=== PATIENT | male | born 1990 | race Caucasian/White ===

== ENCOUNTER 2024-09-25 15:49 | Emergency (ER) | payer OTHER ==
[~2024-09-25] VITALS: Ht 180.3 cm; Wt 81.7 kg
[~2024-09-25 15:49] MED LIST: CEPH500 PO; CRUTCH2 USE; HYDACE5 PO; SULTRIDS PO
[2024-09-25] MEDS ORDERED: Diphth,Pertuss(Acell),Tet Vac 0.5 ML VIAL IM ONE (16:25)
[2024-09-25 16:35] LABS: BASOPHILS ABSOLUTE AUTO 0.11 K/mm3 (0.00-0.23); BASOPHILS PERCENT AUTO 1 % (0-2); EOSINOPHILS ABSOLUTE AUTO 0.19 K/mm3 (0.00-0.68); EOSINOPHILS PERCENT AUTO 1 % (0-6); Hematocrit 42.3 % (37.0-53.0); Hemoglobin 14.8 g/dL (13.5-17.5); IMMATURE GRAN PERCENT AUTO 1 % (0-1); LYMPHOCYTES ABSOLUTE AUTO 1.39 K/mm3 (0.84-5.20); LYMPHOCYTES PERCENT AUTO 10 % (21-46); MONOCYTES ABSOLUTE AUTO 0.78 K/mm3 (0.16-1.47); MONOCYTES PERCENT AUTO 6 % (4-13); Mean Corpuscular Volume 91 fL (80-100); Mean Platelet Volume 9.7 fL (9.1-12.4); NEUTROPHILS ABSOLUTE AUTO 11.59 K/mm3 (1.96-9.15); NEUTROPHILS PERCENT AUTO 82 % (41-73); Platelet Count 300 K/mm3 (150-400); RDW Coefficient Variation 11.9 % (11.7-14.2); RDW Standard Deviation 39.6 fL (35.1-46.3); Red Blood Cell Count 4.63 M/mm3 (4.30-5.90); White Blood Cell Count 14.16 K/mm3 (4.00-11.30)
[2024-09-25] MEDS ORDERED: HYDROmorphone HCl/Pf 1MG SYR IV ONE (16:35)
[2024-09-25 16:48] LABS: International Normalized Ratio 1.04; Prothrombin Time Results 11.1 Sec (9.7-11.5)
[2024-09-25 16:52] LABS: Ethanol (Alcohol), Blood, Med <3 mg/dL
[2024-09-25 16:53] LABS: Alanine Aminotransfer (ALT/SGP 59 U/L (12-78); Albumin, Blood 4.4 g/dL (3.4-5.0); Albumin/Globulin Ratio 1.3 (0.8-1.8); Alk Phos 57 U/L (50-136); Anion Gap 11 mmol/L (3-11); Aspartate Aminotrans (AST/SGOT 64 U/L (12-37); Bilirubin, Total 0.5 mg/dL (0.1-1.0); Blood Urea Nitrogen 20 mg/dL (8-24); Bun/Creatinine Ratio 18.3 (12.0-20.0); CO2, Blood 25 mmol/L (21-32); Calcium, Blood 9.4 mg/dL (8.5-10.1); Chloride, Blood 105 mmol/L (98-108); Creatinine, Blood 1.09 mg/dL (0.60-1.20); Globulin, Blood 3.3 g/dL (2.2-4.0); Glomerular Filtration Rate 92 (60-); Glucose, Blood 95 mg/dL (70-99); Potassium, Blood 3.7 mmol/L (3.5-5.5); Sodium, Blood 137 mmol/L (136-145); Total Protein, Blood 7.7 g/dL (6.4-8.2)
[2024-09-25] MEDS ORDERED: Ketorolac Tromethamine 30mg Vial IV ONE (17:25)
[2024-09-25 18:43] LABS: Source, Urine Clean Catch
[2024-09-25 18:47] LABS: Appearance, Urine Clear (Clear); Bilirubin, Urine Neg (Neg); Blood, Urine Neg (Neg); Color, Urine Yellow (P-Yellow); Glucose Qualitative, Urine Neg (Neg); Ketones, Urine 4+ (Neg); Leukocyte Esterase, Urine Neg (Neg); Nitrite, Urine Neg (Neg); Protein, Urine 1+ (Neg); Specific Gravity, Urine 1.015 (1.003-1.022); Urobilinogen, Urine NORM (Normal)
[2024-09-25 19:00] LABS: U Amphetamine Screen Not Detected; U Barbituate Screen Not Detected; U Benzodiazapine Screen Not Detected; U Cocaine Screen Not Detected; U Methadone Screen Not Detected; U Methamphetamine Screen Not Detected
[2024-09-25 19:01] LABS: U Buprenorphine Screen Not Detected; U Cannabinoids Screen Not Detected; U Opiates Screen DETECTED; U Oxycodone Screen Not Detected; U Phencyclidine Screen Not Detected
[2024-09-25] MEDS ORDERED: OXAYDO5 M1 PO (19:40)
== END 2024-09-25 19:54 | disposition home or self-care (01) ==
LOC: ER 15:49
PROVIDERS: Student in an Organized Health Care Education/Training Program
DX: S42.101A Fracture of unspecified part of scapula, right shoulder, initial encounter for closed fracture (principal); S00.81XA Abrasion of other part of head, initial encounter; Y93.55 Activity, bike riding; Z88.1 Allergy status to other antibiotic agents; Z88.0 Allergy status to penicillin; Z79.2 Long term (current) use of antibiotics; Z79.891 Long term (current) use of opiate analgesic; V86.56XA Driver of dirt bike or motor/cross bike injured in nontraffic accident, initial encounter
CPT/HCPCS: 70450; 71045; 71260; 72125; 73030; 73100; 74177; 80053; 80320; 83690; 85025; 85610; 96374-59; 96375; 99284-25; J1171; J1885; Q9967

== ENCOUNTER 2025-04-14 08:32 | Day surgery (SDC) | payer OTHER ==
[~2025-04-14] VITALS: Ht 180.3 cm; Wt 83.0 kg
[2025-04-14] VITALS (17 sets, daily range): BP systolic 87–163; BP diastolic 43–88
[~2025-04-14 08:32] MED LIST changes: +Bupivacaine 0.5% HCl 5 MG/ML 30MLVIAL ONE; +CeFAZolin Sodium 2,000 MG in NS 100 ML IV SCH; +FentaNYL Citrate 50 MCG/ML 2 ML Injection ONE; +IBUP800 PO; +Midazolam HCl 1MG / ML 2ML Vial ONE; +OXAYDO5 M1 PO; +Phenylephrine HCl 100 MCG/ML-NS 10MLSYR (1MG/10ML) ONE; +Rocuronium Bromide 10 MG/ML 5ML Injection IV ONE; +Tranexamic Acid 100 ML IV SCH; +ZYRTEC10 M2 PO
[2025-04-14] MEDS ORDERED: EPINEPhrine HCl 1 MG / ML 30ML Vial ONE (09:03)
[2025-04-14] MEDS ORDERED: Bupivacaine 0.5% W/EPI 1:200000 SDV 30 ML Vial ONE (09:04)
--- NOTE | 2025-04-14 09:08 | NUR ---
History, Chart, Medications and Allergies reviewed before start of procedure. Patient States Post-Procedure ride home has been arranged. PT FITTED IN SLING IN PRE OP.
--- NOTE | 2025-04-14 09:25 | NUR ---
TIME OUT AT 0911 [address] NAVARRO, ANESTHESIOLOGIST. THIS RN ASSISTED. PT TOLERATED PROCEDURE WELL. VSS. PT PREMEDICATED BY ANESTHESIOLOGIST, SEE RECORDS.
[2025-04-14] MEDS ORDERED: Dexamethasone Sod Phos 10 MG/ML 1ML VIAL ONE (09:39)
[2025-04-14] MEDS ORDERED: Ketorolac Tromethamine 30mg Vial ONE (09:39)
[2025-04-14] MEDS ORDERED: Ondansetron HCl 2 MG / ML 2ML Vial ONE (09:39)
[2025-04-14] MEDS ORDERED: FentaNYL Citrate 50 MCG/ML 2 ML Injection ONE ×2 (10:44→12:11)
[2025-04-14] MEDS ORDERED: Phenylephrine HCl 100 MCG/ML-NS 10MLSYR (1MG/10ML) ONE (11:02)
[2025-04-14] MEDS ORDERED: Sugammadex Sodium 200 MG/2ML SDV (100 MG/ML) ONE (12:07)
[2025-04-14] MEDS ORDERED: Prochlorperazine Edisylate 10 mg Vial IV PRN (12:25)
[2025-04-14] MEDS ORDERED: FentaNYL Citrate 50 MCG/ML 2 ML Injection IV PRN ×2 (12:25→12:30)
[2025-04-14] MEDS ORDERED: Ondansetron HCl 2 MG / ML 2ML Vial IV PRN (12:30)
[2025-04-14] MEDS ORDERED: HYDROmorphone HCl/Pf 1MG SYR IV PRN (12:30)
--- NOTE | 2025-04-14 15:18 | NUR ---
Discharge instructions reviewed with patient. Patient verbalizes understanding. Copy given to patient to take home. Dressing to R shoulder/wrist c/d/i. Polar pack sent with pt. Prescription sent electronically. Shoulder sling in place. Patient States Post-Procedure ride home has been arranged. Discharged via wheelchair to private car for ride home.
== END 2025-04-14 15:10 | disposition home or self-care (01) ==
LOC: ORSCMMR 08:32 → ORD 09:45 → ORSCMMR 09:45 → ORSCSDS 09:45 → ORSCMMR 15:10
PROVIDERS: Orthopaedic Surgery Sports Medicine
PROC: 0RQJ4ZZ Repair Right Shoulder Joint, Percutaneous Endoscopic Approach (ICD-10-PCS; principal; 2025-04-14 09:45)
PROC: 0RCN0ZZ Extirpation of Matter from Right Wrist Joint, Open Approach (ICD-10-PCS; principal; 2025-04-14 09:45)
DX: S43.431A Superior glenoid labrum lesion of right shoulder, initial encounter (principal); M24.031 Loose body in right wrist; Y93.64 Activity, baseball; V86.56XD Driver of dirt bike or motor/cross bike injured in nontraffic accident, subsequent encounter
CPT/HCPCS: C1713; J0165; J0690; J1100; J1885; J2250; J2371; J2405; J2704; J3010; J7120